=== PATIENT | male | born 1980 | race Hispanic/Latino ===

== ENCOUNTER 2020-10-20 15:25 | Emergency (ER) | payer BC, OTHER ==
[~2020-10-20 15:25] MED LIST: CIPR-278 PO; METR500T PO; TRAM50TA4 PO
[2020-10-20 15:59] LABS: BASOPHILS % (AUTO) 0.4 % (0.0-5.0); EOSINOPHILS % (AUTO) 2.5 % (0.0-8.0); HEMATOCRIT 38.7 % (42-54); LYMPHOCYTES % (AUTO) 30.3 % (21.0-51.0); MEAN CORPUSCULAR HEMOGLOBIN 33.3 pg (27.0-33.0); MEAN CORPUSCULAR HGB CONC 35.9 g/dL (32.0-36.0); MEAN CORPUSCULAR VOLUME 92.6 fL (79-99); MONOCYTES % (AUTO) 9.3 % (3.0-13.0); NEUTROPHILS % (AUTO) 57.4 % (40.0-77.0); PLATELET COUNT (AUTO) 226 K/uL (130-400); RED BLOOD CELL COUNT(AUTO) 4.18 MIL/uL (4.50-6.20); RED CELL DISTRIBUTION WIDTH 12.2 % (11.0-15.5); WHITE BLOOD COUNT (AUTO) 7.1 K/uL (4.8-10.8)
[2020-10-20] MEDS ORDERED: CEFTRIAXONE SODIUM 500 MG VIAL ONE (16:05)
[2020-10-20] MEDS ORDERED: AZITHROMYCIN 250 MG TABLET PO ONE (16:06)
[2020-10-20] MEDS ORDERED: LIDOCAINE HCL-MPF 1% 2ML VIAL ONE (16:08)
[2020-10-20 16:22] LABS: CREATININE 0.8 mg/dL (0.5-1.5); POTASSIUM 3.6 mmol/L (3.5-5.1)
[2020-10-20 16:24] LABS: APPEARANCE,URINE Clear (CLEAR); BILIRUBIN,URINE Negative (NEGATIVE); COLOR,URINE Yellow (YELLOW); GLUCOSE, URINE (UA) Negative (NEGATIVE); KETONES,URINE Negative (NEGATIVE); LEUKOCYTE ESTERASE ,URINE Negative (NEGATIVE); NITRATE,URINE Negative (NEGATIVE); OCCULT BLOOD,URINE Negative (NEGATIVE); PH,URINE 5.5 (5.0-8.0); PROTEIN,URINE Negative (NEGATIVE)
[2020-10-20 16:26] LABS: ALBUMIN 3.7 g/dL (3.5-5.0); BILIRUBIN,TOTAL 1.5 mg/dL (0.2-1.0); TOTAL PROTEIN, SERUM 7.3 g/dL (6.0-8.3)
[2020-10-24 09:14] LABS: CHLAMYDIA DNA N.A.AMPLIFY Negative (Negative)
== END 2020-10-20 15:46 | disposition home or self-care (01) ==
LOC: EDH 15:25
DX: N39.0 Urinary tract infection, site not specified (principal); R31.9 Hematuria, unspecified; Z90.49 Acquired absence of other specified parts of digestive tract; Z88.6 Allergy status to analgesic agent
CPT/HCPCS: 36415; 80053; 81003; 83690; 85025; 87486; 87797; 96372; 99284; J0696; J3490

== ENCOUNTER 2022-05-30 15:19 | Emergency (ER) | payer BC ==
[~2022-05-30] VITALS: Ht 172.7 cm; Wt 115.7 kg
[2022-05-30 16:33] LABS: APPEARANCE,URINE CLEAR (CLEAR); BILIRUBIN,URINE NEGATIVE (NEGATIVE); COLOR,URINE LIGHT-YELLOW (YELLOW); GLUCOSE, URINE (UA) NEGATIVE (NEGATIVE); KETONES,URINE NEGATIVE (NEGATIVE); LEUKOCYTE ESTERASE ,URINE 500 Leu/uL (NEGATIVE); NITRATE,URINE NEGATIVE (NEGATIVE); PROTEIN,URINE NEGATIVE (NEGATIVE); UROBILINOGEN,URINE 0.2 mg/dL (0.2-1.0)
[2022-05-30 16:38] LABS: BACTERIA,URINE RARE /HPF (None Seen); MUCUS,URINE RARE LPF (None Seen); SQUAMOUS EPITHELIAL CELL,UR RARE /HPF (0-2); WBC,URINE 51-100 /HPF (0-1)
[2022-05-30 17:09] VITALS: BP 137/81
[2022-05-30] MEDS ORDERED: SULF1TAB42 PO (17:45)
[2022-05-30] MEDS ORDERED: AZITHROMYCIN 250 MG TABLET PO ONE (18:00)
[2022-05-30] MEDS ORDERED: CEFTRIAXONE 500MG VIAL IM SCH (18:00)
[2022-05-30] MEDS ORDERED: LIDOCAINE HCL-MPF 2% 5ML VIAL ONE (18:06)
== END 2022-05-30 18:15 | disposition home or self-care (01) ==
LOC: EDH 15:19
DX: N39.0 Urinary tract infection, site not specified (principal); Z20.2 Contact with and (suspected) exposure to infections with a predominantly sexual mode of transmission; Z88.1 Allergy status to other antibiotic agents; Z88.8 Allergy status to other drugs, medicaments and biological substances; Z91.040 Latex allergy status; Z90.49 Acquired absence of other specified parts of digestive tract
CPT/HCPCS: 99284; 87088; 87797; 87486; 81001; 96372; J3490; J0696